=== PATIENT | male | born 2000 | race Caucasian/White ===

== ENCOUNTER 2022-08-10 15:14 | Emergency (ER) | payer OTHER ==
[~2022-08-10] VITALS: Ht 172.7 cm; Wt 68.0 kg
[2022-08-10 16:33] VITALS: BP 133/84
[2022-08-10] MEDS ORDERED: IBUP-2213 PO (17:08)
--- NOTE | 2022-08-10 17:30 | NUR ---
Patient discharged with v/s stable. Written and verbal after care instructions given and explained. Patient verbalized understanding. Ambulatory with steady gait. All questions addressed prior to discharge. Advised to follow up with PMD. PT. STABLE FOR D/C HOME \
== END 2022-08-10 17:30 | disposition home or self-care (01) ==
LOC: MED 15:14
DX: R20.0 Anesthesia of skin (principal)
CPT/HCPCS: 99281